=== PATIENT | female | born 2000 ===

== ENCOUNTER 2021-06-13 18:12 | Emergency (ER) | payer SELFPAY ==
[2021-06-13 19:10] LABS: Basophils # (Auto) 0.1 K/mm3 (0.0-0.1); Basophils % (Auto) 0.8 % (0.0-1.8); Eosinophils # (Auto) 0.2 K/mm3 (0.0-0.4); Eosinophils % (Auto) 2.1 % (0.0-4.3); Hematocrit 41.5 % (30.3-42.9); Hemoglobin 13.3 gm/dl (10.1-14.3); Lymphocytes % (Auto) 27.1 % (13.4-35.0); Mean Corpuscular HGB Conc 32 % (30-34); Mean Corpuscular Volume 84 fl (79-97); Monocytes # (Auto) 0.8 K/mm3 (0.0-0.8); Monocytes % (Auto) 6.9 % (0.0-7.3); Red Blood Count 4.93 M/mm3 (3.65-5.03); Red Cell Distribution Width 13.9 % (13.2-15.2)
[2021-06-13 19:11] LABS: Blood Urea Nitrogen 8 mg/dL (7-17); Calcium 9.8 mg/dL (8.4-10.2); Hemolysis Index 16
[2021-06-13 19:19] LABS: BUN/Creatinine Ratio 11
[2021-06-13 20:20] LABS: Bacteria,Urine 1+ /HPF (Negative); Bilirubin,Urine NEG (Negative); Blood,Urine LG (Negative); Color,Urine Yellow (Yellow); Mucus,Urine FEW /HPF; Protein,Urine <15 mg/dL mg/dL (Negative); Urobilinogen,Urine < 2.0 mg/dL (<2.0)
[2021-06-13 20:26] LABS: Platelet Count 253 K/mm3 (140-440)
--- NOTE | 2021-06-14 00:52 | Ultrasound Report ---
ULTRASOUND OBSTETRIC INDICATION / CLINICAL INFORMATION: vag bleed preg. Clinical Gestational Age (GA) in weeks, days: 6 weeks 1 day TECHNIQUE: Transabdominal and Transvaginal. COMPARISON: None available. FINDINGS: GESTATIONAL SAC: Well-defined oval shape and intrauterine in location. YOLK SAC: No significant abnormality. EMBRYO/FETUS: No significant abnormality. - [place]-Rump Length = 0.72 cm = 6, 4 weeks, days - Heart Rate, beats per minute (if present) = 121 Gestational sac diameter 1.8 cm, 6 weeks 5 days. ADNEXA: Right ovary measures 3.4 x 2.4 x 2.7 cm. Left ovary measures 2.9 x 2.0 x 2.7 cm. Small left o varian cyst is suggested. To reflect a corpus luteum cyst. FREE FLUID: None. ADDITIONAL FINDINGS: None. IMPRESSION: 1. Single, living intrauterine with estimated sonographic age of 6 weeks 5 days. EDC 2021 Signer Name: Jose Angel Muniz II, MD Signed: 06/14/2021 12:47 AM Workstation Name: [id number]
--- NOTE | 2021-06-14 00:52 | Ultrasound Report ---
ULTRASOUND OBSTETRIC INDICATION / CLINICAL INFORMATION: vag bleed preg. Clinical Gestational Age (GA) in weeks, days: 6 weeks 1 day TECHNIQUE: Transabdominal and Transvaginal. COMPARISON: None available. FINDINGS: GESTATIONAL SAC: Well-defined oval shape and intrauterine in location. YOLK SAC: No significant abnormality. EMBRYO/FETUS: No significant abnormality. - [place]-Rump Length = 0.72 cm = 6, 4 weeks, days - Heart Rate, beats per minute (if present) = 121 Gestational sac diameter 1.8 cm, 6 weeks 5 days. ADNEXA: Right ovary measures 3.4 x 2.4 x 2.7 cm. Left ovary measures 2.9 x 2.0 x 2.7 cm. Small left o varian cyst is suggested. To reflect a corpus luteum cyst. FREE FLUID: None. ADDITIONAL FINDINGS: None. IMPRESSION: 1. Single, living intrauterine with estimated sonographic age of 6 weeks 5 days. EDC 2021 Signer Name: Jose Angel Muniz II, MD Signed: 06/14/2021 12:47 AM Workstation Name: [id number]
--- NOTE | 2021-06-14 01:01 | Emergency Department Report ---
ED Female HPI - General Chief complaint: Abdominal Pain Stated complaint: 4WKS /BLEEDING Time Seen by Provider: 06/13/21 21:20 Source: patient Mode of arrival: Ambulatory Limitations: No Limitations - History of Present Illness Initial comments: abd pain , 5 weeks preg., pt is latno has bleeding - Related Data Allergies Allergy/AdvReac Type Severity Reaction Status Date / Time No Known Allergies Allergy Verified 06/13/21 18:41 ED Review of Systems ROS: Stated complaint: 4WKS /BLEEDING Other details as noted in HPI Constitutional: denies: chills, fever Eyes: denies: eye pain, eye discharge, vision change ENT: denies: ear pain, throat pain Respiratory: denies: cough, shortness of breath, wheezing Cardiovascular: denies: chest pain, palpitations Endocrine: no symptoms reported Gastrointestinal: denies: abdominal pain, nausea, diarrhea Genitourinary: denies: urgency, dysuria, discharge Musculoskeletal: denies: back pain, joint swelling, arthralgia Skin: denies: rash, lesions Neurological: denies: headache, weakness, paresthesias Psychiatric: denies: anxiety, depression Hematological/Lymphatic: denies: easy bleeding, easy bruising ED Past Medical Hx - Past Medical History Previous Medical History?: No Hx Hypertension: No ED Physical Exam - General Limitations: No Limitations General appearance: alert, in no apparent distress - Head Head exam: Present: atraumatic, normocephalic - Eye Eye exam: Present: normal appearance - ENT ENT exam: Present: mucous membranes moist - Neck Neck exam: Present: normal inspection - Respiratory Respiratory exam: Present: normal lung sounds bilaterally. Absent: respiratory distress - Cardiovascular Cardiovascular Exam: Present: regular rate, normal rhythm. Absent: systolic murmur, diastolic murmur, rubs, gallop - GI/Abdominal GI/Abdominal exam: Present: soft, normal bowel sounds - Extremities Exam Extremities exam: Present: normal inspection - Back Exam Back exam: Present: normal inspection - Neurological Exam Neurological exam: Present: alert, oriented X3 - Psychiatric Psychiatric exam: Present: normal affect, normal mood - Skin Skin exam: Present: warm, dry, intact, normal color. Absent: rash ED Course Vital Signs 06/13/21 18:43 Temperature 98.3 F Pulse Rate 78 Respiratory 18 Rate Blood Pressure 112/64 O2 Sat by Pulse 100 Oximetry - Reevaluation(s) Reevaluation #1: 06/14/21 01:00 6 weeks IUP ED Medical Decision Making - Lab Data Result diagrams: 06/13/21 18:35 06/13/21 18:35 Critical care attestation.: If time is entered above; I have spent that time in minutes in the direct care of this critically ill patient, excluding procedure time. ED Disposition Clinical Impression: Vaginal bleeding, Threatened Disposition: 01 HOME / SELF CARE / HOMELESS Is pt being admited?: No Does the pt Need Aspirin: No Condition: Stable Instructions: Abdominal Pain (ED) Referrals: PRIMARY CARE, [Primary Care Provider] - 3-5 Days
[2021-06-14 01:16] VITALS: BP 114/60
== END 2021-06-14 01:14 | disposition home or self-care (01) ==
LOC: ED 18:12
DX: O20.0 Threatened abortion (principal); Z3A.01 Less than 8 weeks gestation of pregnancy
CPT/HCPCS: 36415; 76801; 76817; 80048; 81001; 84702; 85025; 86900; 86901; 99284